=== PATIENT | male | born 1955 | race Caucasian/White ===

== ENCOUNTER 2021-02-08 08:26 | Day surgery (SDC) | payer MEDICARE ==
[~2021-02-08] VITALS: Ht 182.9 cm; Wt 95.5 kg
[2021-02-08] MEDS ORDERED: ALBU8.5H8 INH (09:26)
[2021-02-08] MEDS ORDERED: LIPOSOMAL VIT C PO (09:26)
[2021-02-08] MEDS ORDERED: ASPI81TA45 PO (09:26)
[2021-02-08] MEDS ORDERED: NIAC500T9 PO (09:26)
[2021-02-08] MEDS ORDERED: UBID200C33 PO (09:26)
[2021-02-08] MEDS ORDERED: MAGN400T36 PO (09:26)
[2021-02-08] MEDS ORDERED: VITAMIN B PO (09:26)
[2021-02-08] MEDS ORDERED: AMLO-150 PO (09:26)
[2021-02-08] MEDS ORDERED: LACT460C PO (09:26)
[2021-02-08] MEDS ORDERED: CHOL10003 PO (09:26)
[2021-02-08] MEDS ORDERED: CYAN1TAB29 PO (09:26)
[2021-02-08] MEDS ORDERED: FINA5TAB4 PO (09:26)
[2021-02-08] MEDS ORDERED: ZINC GLYCINATE PO (09:26)
[2021-02-08] MEDS ORDERED: LOSA25TA25 PO (09:26)
[2021-02-08] MEDS ORDERED: OMEG1CAP23 PO (09:26)
[2021-02-08 09:27] VITALS: BP 148/93
[2021-02-08] MEDS ORDERED: SODIUM CHLORIDE 0.9% 1,000 ML IV SCH ×2 (09:30→12:00)
[2021-02-08] MEDS ORDERED: PLEASE ENTER HEIGHT AND WEIGHT MC SCH (09:30)
[2021-02-08] MEDS ORDERED: DIPHENHYDRAMINE 50 MG/ML, 1ML IVPush ONE (09:30)
[2021-02-08] MEDS ORDERED: LIDOCAINE-MPF 1%, 5ML ONE (10:22)
[2021-02-08] MEDS ORDERED: FENTANYL PF 100 MCG/2ML ONE (10:23)
[2021-02-08] MEDS ORDERED: MIDAZOLAM 1 MG/ML, 2ML ONE (10:23)
[2021-02-08] MEDS ORDERED: VERAPAMIL 2.5 MG/ML, 2ML ONE (10:23)
[2021-02-08] MEDS ORDERED: HEPARIN 1,000 UNITS/ML, 10ML ONE (10:24)
[2021-02-08] MEDS ORDERED: ICOS1CAP PO (13:07)
== END 2021-02-08 14:57 | disposition home or self-care (01) ==
LOC: CACL 08:26
PROVIDERS: ATTEND Internal Medicine Cardiovascular Disease
DX: R06.02 Shortness of breath (principal); I25.110 Atherosclerotic heart disease of native coronary artery with unstable angina pectoris; I37.1 Nonrheumatic pulmonary valve insufficiency; I10 Essential (primary) hypertension; E78.2 Mixed hyperlipidemia; J45.909 Unspecified asthma, uncomplicated; Z79.899 Other long term (current) drug therapy; Z88.2 Allergy status to sulfonamides; Z82.49 Family history of ischemic heart disease and other diseases of the circulatory system
CPT/HCPCS: 93306; 93356; 93460; C1769; C1894; J1644; J2250; J3010; Q9967